=== PATIENT | male | born 1955 | race Caucasian/White ===

== ENCOUNTER 2020-12-03 15:25 | Emergency (ER) | payer BC, MEDICARE ==
[~2020-12-03] VITALS: Ht 175.3 cm; Wt 101.3 kg
[2020-12-03] MEDS ORDERED: VALSARTAN-HCTZ1 EAC3 (16:05)
[2020-12-03] MEDS ORDERED: CRESTOR10 MG PO (16:05)
[2020-12-03] MEDS ORDERED: BYSTOLIC10 MG PO (16:05)
[2020-12-03] MEDS ORDERED: CHLORDIAZEPOX-1 EACH (16:05)
[2020-12-03] MEDS ORDERED: NOVOLOG100 UNIT/1 SC (16:05)
[2020-12-03] MEDS ORDERED: PREDNISOLONE ACE5 M1 (16:05)
[2020-12-03] MEDS ORDERED: LANTUS 3ML100 UNITS/ (16:05)
== END 2020-12-03 18:08 | disposition home or self-care (01) ==
LOC: FSED 15:36
DX: M79.605 Pain in left leg (principal); M79.89 Other specified soft tissue disorders; R03.0 Elevated blood-pressure reading, without diagnosis of hypertension
CPT/HCPCS: 93971; 99283

== ENCOUNTER 2021-08-17 15:34 | Inpatient (IN) | payer MEDICARE ==
[~2021-08-17] VITALS: Ht 175.3 cm; Wt 102.1 kg
[~2021-08-17 15:34] MED LIST: BYSTOLIC10 MG PO; CHLORDIAZEPOX-1 EACH; CRESTOR10 MG PO; LANTUS 3ML100 UNITS/ SQ; NOVOLOG100 UNIT/1 SC; PREDNISOLONE ACE5 M1; VALSARTAN-HCTZ1 EAC3
[2021-08-17] MEDS ORDERED: SODIUM CHLORIDE 0.9% 1000ML 1,000 ML IV STA (16:24)
[2021-08-17] MEDS ORDERED: ACETAMINOPHEN 325 MG TAB PO PRN ×2 (16:30→17:45)
[2021-08-17] MEDS ORDERED: ASPIRIN 81 MG CHEW TAB PO ONE (16:30)
[2021-08-17] MEDS ORDERED: ZOLPIDEM TARTRATE 5 MG TAB PO PRN (16:30)
[2021-08-17] MEDS ORDERED: DIPHENHYDRAMINE HCL 25 MG CAP PO PRN (16:30)
[2021-08-17] MEDS ORDERED: SODIUM CHLORIDE 0.9% 1000ML 1,000 ML ONE (16:39)
[2021-08-17] MEDS ORDERED: SODIUM CHLORIDE 0.45% 1,000 ML IV SCH (17:30)
[2021-08-17] MEDS: CLONIDINE HCL 0.1 MG TAB PO PRN (17:40)
[2021-08-17] MEDS ORDERED: HYDRALAZINE HCL 20 MG/ML VIAL IV PRN ×2 (17:45→21:30)
[2021-08-17] MEDS ORDERED: CLONIDINE HCL 0.1 MG TAB ONE (17:45)
[2021-08-17 19:51] VITALS: BP 162/72
[2021-08-17 20:48] VITALS: BP 162/72
[2021-08-17 20:51] LABS: CREATINE KINASE MB 1.6 ng/mL (0-5.0)
[2021-08-17] MEDS ORDERED: CHLORDIAZEPOXID10 MG PO (20:58)
[2021-08-17] MEDS ORDERED: PAMELOR10 MG PO (20:58)
[2021-08-17 21:00] VITALS: BP 162/72
[2021-08-17] MEDS ORDERED: HUMALOG MI100 UNIT/2 SQ (21:00)
[2021-08-17] MEDS ORDERED: DEXTROSE 50% SYRINGE 50 ML IV PRN (21:45)
[2021-08-17] MEDS: SODIUM CHLORIDE 0.9% 1000ML 1,000 ML IV SCH (22:14)
[2021-08-18] VITALS (7 sets, daily range): BP systolic 153–197; BP diastolic 62–83
[2021-08-18 01:14] LABS: CREATINE KINASE MB 1.6 ng/mL (0-5.0)
[2021-08-18] MEDS: ASPIRIN 81 MG ENTERIC COATED PO SCH (08:28)
[2021-08-18] MEDS: CARVEDILOL 3.125 MG TAB PO SCH ×2 (08:29→16:29)
[2021-08-18] MEDS: INSULIN REGULAR, HUMAN 100 UNIT/1 ML SQ SCH ×4 (08:33→21:45)
[2021-08-18 11:30] LABS: HEMATOCRIT 36.1 % (38.2-49.6); HEMOGLOBIN 11.6 g/dL (14.0-18.0); MEAN CORPUSCULAR HEMOGLOBIN 28.4 pg (28-32); MEAN CORPUSCULAR HGB CONC 32.1 g/dL (31-35); MEAN CORPUSCULAR VOLUME 88.3 fL (81-99); PLATELET COUNT 234 x10e3/uL (140-360); RED BLOOD COUNT 4.09 x10e6/uL (4.3-5.7); RED CELL DISTRIBUTION WIDTH 12.6 % (11.7-14.4)
[2021-08-18 11:54] LABS: ANION GAP 10.8 mmol/L (8-16); CALCIUM 7.7 mg/dL (8.4-10.2); CREATININE, SERUM 2.62 mg/dL (0.72-1.25); MAGNESIUM 1.7 MG/DL (1.3-2.1); POTASSIUM 3.8 mmol/L (3.5-5.1)
[2021-08-18] MEDS: SODIUM CHLORIDE 0.9% 1000ML 1,000 ML IV SCH ×2 (12:10→21:45)
[2021-08-18 12:18] LABS: CREATINE KINASE MB 1.4 ng/mL (0-5.0)
[2021-08-18 12:37] LABS: CHOL/HDL RATIO 5.5 (3.9-4.7)
[2021-08-18 12:56] LABS: THYROID STIMULATING HORMONE 1.659 uIU/mL (0.350-4.940)
[2021-08-18 13:42] LABS: EOSINOPHILS % (MANUAL) 4 % (0-7); LYMPHOCYTES % (MANUAL) 22 % (19-48); MONOCYTES % (MANUAL) 9 % (3.4-9.0); NEUTROPHILS % (MANUAL) 65 % (40-74)
[2021-08-18 13:43] LABS: PLATELET ESTIMATE ADEQUATE; PLATELET MORPHOLOGY COMMENT NORMAL; RBC MORPHOLOGY COMMENT NORMAL
[2021-08-18] MEDS: CLONIDINE HCL 0.1 MG TAB PO PRN (16:29)
[2021-08-19] VITALS (7 sets, daily range): BP systolic 136–192; BP diastolic 67–89
[2021-08-19] MEDS: SODIUM CHLORIDE 0.9% 1000ML 1,000 ML IV SCH (03:45)
[2021-08-19] MEDS: CLONIDINE HCL 0.1 MG TAB PO PRN (06:16)
[2021-08-19] MEDS: ASPIRIN 81 MG ENTERIC COATED PO SCH (07:45)
[2021-08-19] MEDS: CARVEDILOL 3.125 MG TAB PO SCH ×2 (07:46→16:32)
[2021-08-19] MEDS: INSULIN REGULAR, HUMAN 100 UNIT/1 ML SQ SCH ×4 (08:30→22:03)
[2021-08-19] MEDS ORDERED: AMLODIPINE BESYLATE 5 MG TAB PO SCH (11:00)
[2021-08-19] MEDS: NIFEDIPINE CR 30 MG TAB PO SCH ×2 (11:28→16:32)
[2021-08-19 13:53] LABS: CLARITY,URINE CLEAR (CLEAR); COLOR,URINE YELLOW (YELLOW); LEUKOCYTE ESTERASE ,URINE NEGATIVE (NEGATIVE); NITRITE,URINE NEGATIVE (NEGATIVE); PROTEIN,URINE DIPSTICK >=300 (NEGATIVE)
[2021-08-19 13:54] LABS: KETONES,URINE NEGATIVE (NEGATIVE); URINE UROBILINOGEN 0.2 mg/dL (0.2 - 1)
[2021-08-19 14:04] LABS: BACTERIA,URINE RARE /HPF; RBC,URINE 0-5 /HPF (0-5); WBC,URINE (MAN) 0-5 /HPF (0-5)
[2021-08-19 14:34] LABS: CREATININE,URINE RANDOM 41.48 mg/dL (63-166); TOTAL PROTEIN, URINE 190.2 mg/dL (1-14)
[2021-08-20] VITALS: BP 134/61
[2021-08-20 04:00] VITALS: BP_SYST 133; BP_SYST 138; BP_DIAS 64; BP_DIAS 66
[2021-08-20 06:11] LABS: ALBUMIN 2.4 g/dL (3.5-5.0); ALBUMIN/GLOBULIN RATIO 1.1 (0.8-2.0); ANION GAP 12.6 mmol/L (8-16); CALCIUM 7.7 mg/dL (8.4-10.2); CREATININE, SERUM 2.39 mg/dL (0.72-1.25); POTASSIUM 3.6 mmol/L (3.5-5.1)
[2021-08-20] MEDS: INSULIN REGULAR, HUMAN 100 UNIT/1 ML SQ SCH ×3 (07:30→16:40)
[2021-08-20 08:00] VITALS: BP 128/84
[2021-08-20 09:10] VITALS: BP 128/84
[2021-08-20] MEDS: CARVEDILOL 3.125 MG TAB PO SCH ×2 (09:13→16:32)
[2021-08-20] MEDS: ASPIRIN 81 MG ENTERIC COATED PO SCH (09:13)
[2021-08-20] MEDS: NIFEDIPINE CR 30 MG TAB PO SCH (09:13)
[2021-08-20 11:50] VITALS: BP 133/68
[2021-08-20 16:05] VITALS: BP 152/74
[2021-08-20] MEDS ORDERED: COREG3.125 MG PO (16:54)
[2021-08-20] MEDS ORDERED: ASPIRIN EC81 MG PO (16:54)
[2021-08-20] MEDS ORDERED: NIFEDIPINE ER30 M1 PO (16:54)
[2021-08-21] MEDS ORDERED: NIFEDIPINE CR 30 MG TAB PO SCH (09:00)
== END 2021-08-20 18:24 | disposition home or self-care (01) | DRG 312 ==
LOC: FSED 15:57 → ERHOLD 16:24 → MED/SURG 18:10 → OBSVTOIN 21:43
PROVIDERS: ADMIT Internal Medicine; ATTEND Internal Medicine
DX: I95.1 Orthostatic hypotension (principal); N17.9 Acute kidney failure, unspecified; N18.32 Chronic kidney disease, stage 3b; R94.31 Abnormal electrocardiogram [ECG] [EKG]; I16.0 Hypertensive urgency; R42 Dizziness and giddiness; E11.51 Type 2 diabetes mellitus with diabetic peripheral angiopathy without gangrene; E11.22 Type 2 diabetes mellitus with diabetic chronic kidney disease; I12.9 Hypertensive chronic kidney disease with stage 1 through stage 4 chronic kidney disease, or unspecified chronic kidney disease; E78.00 Pure hypercholesterolemia, unspecified; K58.9 Irritable bowel syndrome, unspecified; Z88.5 Allergy status to narcotic agent; Z82.49 Family history of ischemic heart disease and other diseases of the circulatory system; Z83.3 Family history of diabetes mellitus; Z20.822 Contact with and (suspected) exposure to COVID-19; Z87.442 Personal history of urinary calculi; Z79.4 Long term (current) use of insulin
CPT/HCPCS: 36415; 70551; 76770; 80048; 80053; 80061; 81001; 82550; 82553; 82570; 82948; 83036; 83735; 84156; 84443; 84484; 85007; 85025; 85027; 93005; 93306; 93880; 99284; J0360; J1817; J7030

== ENCOUNTER 2021-09-04 13:34 | Emergency (ER) | payer MEDICARE ==
[~2021-09-04] VITALS: Ht 175.3 cm; Wt 102.1 kg
[~2021-09-04 13:34] MED LIST changes: +ASPIRIN EC81 MG PO; +CHLORDIAZEPOXID10 MG PO; +COREG3.125 MG PO; +HUMALOG MI100 UNIT/2 SQ; +NIFEDIPINE ER30 M1 PO; +PAMELOR10 MG PO
[2021-09-04] MEDS ORDERED: COREG3.125 MG PO (14:37)
== END 2021-09-04 14:51 | disposition home or self-care (01) ==
LOC: FSED 13:49
DX: Z76.0 Encounter for issue of repeat prescription (principal); I10 Essential (primary) hypertension; E11.9 Type 2 diabetes mellitus without complications; E78.5 Hyperlipidemia, unspecified
CPT/HCPCS: 99284

== ENCOUNTER → 2022-08-04 | Day surgery (SDC) | payer MEDICARE ==
[2022-07-29 14:15] LABS: BASOPHILS # (AUTO) 0.1 (0.0-0.1); BASOPHILS % 0.6 % (0.0-1.0); EOSINOPHILS # (AUTO) 0.6 (0.0-0.4); HEMOGLOBIN 12.7 g/dL (14.0-18.0); LYMPHOCYTES # (AUTO) 1.8 (1.0-3.2); LYMPHOCYTES % 20.2 % (18.0-39.1); MEAN CORPUSCULAR HEMOGLOBIN 28.6 pg (28-32); MEAN CORPUSCULAR HGB CONC 33.4 g/dL (31-35); MEAN CORPUSCULAR VOLUME 85.6 fL (81-99); MONOCYTES # (AUTO) 0.7 (0.2-0.8); MONOCYTES % 8.1 % (4.4-11.3); NEUTROPHILS # (AUTO) 5.8 (2.1-6.9); NEUTROPHILS % 63.9 % (38.7-80.0); PLATELET COUNT 225 x10e3/uL (140-360); RED BLOOD COUNT 4.44 x10e6/uL (4.3-5.7); RED CELL DISTRIBUTION WIDTH 12.8 % (11.7-14.4)
[2022-07-29 14:28] LABS: INR 0.92; PROTHROMBIN TIME 12.9 seconds (11.9-14.5)
[2022-07-29 14:37] LABS: ALBUMIN 3.4 g/dL (3.5-5.0); ALBUMIN/GLOBULIN RATIO 1.1 (0.8-2.0); ANION GAP 13.4 mmol/L (8-16); CALCIUM 8.7 mg/dL (8.4-10.2); CREATININE, SERUM 3.34 mg/dL (0.72-1.25); POTASSIUM 4.4 mmol/L (3.5-5.1)
[~2022-08-04] MED LIST changes: +CALCITRIOL0.25 MCG PO; +CLONIDINE HCL0.1 MG PO; +DEXTROSE 5% 250ML 250 ML IV ONE; +HUMALOG SQ; +LACTATED RINGER'S 1,000 ML ONE; +LIDOCAINE HCL 2% LOCAL INJ 5 ML SDV VIAL INJ ONE; +ONE DAILY MEN'1 EACH PO; +POVIDONE IODINE 0.05% 0.05 % ML PO ONE; +PROPOFOL IV EMULSION 10 MG/ML 20 ML VIAL ONE
[2022-08-04 12:29] VITALS: TEMP 97.1
[2022-08-04 12:40] VITALS: RESP 16
[2022-08-04 12:55] VITALS: BP 118/62; PULSE 49; O2SAT 99
== END | disposition home or self-care (01) ==
LOC: OR 09:30
PROVIDERS: ATTEND Internal Medicine Gastroenterology
DX: Z12.11 Encounter for screening for malignant neoplasm of colon (principal); D12.2 Benign neoplasm of ascending colon; K57.30 Diverticulosis of large intestine without perforation or abscess without bleeding; K64.1 Second degree hemorrhoids; D64.9 Anemia, unspecified; E11.22 Type 2 diabetes mellitus with diabetic chronic kidney disease; I12.9 Hypertensive chronic kidney disease with stage 1 through stage 4 chronic kidney disease, or unspecified chronic kidney disease; N18.4 Chronic kidney disease, stage 4 (severe); E78.5 Hyperlipidemia, unspecified; N20.0 Calculus of kidney; Z88.6 Allergy status to analgesic agent; Z01.810 Encounter for preprocedural cardiovascular examination; Z01.812 Encounter for preprocedural laboratory examination; Z79.82 Long term (current) use of aspirin; Z79.4 Long term (current) use of insulin; Z79.899 Other long term (current) drug therapy; Z68.33 Body mass index [BMI] 33.0-33.9, adult; Z80.0 Family history of malignant neoplasm of digestive organs
CPT/HCPCS: 36415 ×2; 45381; 45385; 80053; 82948; 85025; 85610; 85730; 88305; 93005; J2001; J2704; J7070; J7121; 45378